=== PATIENT | male | born 1985 | race Caucasian/White ===

== ENCOUNTER 2016-04-29 19:19 | Emergency (ER) | payer MEDICAID ==
[~2016-04-29] VITALS: Ht 188 cm; Wt 82.6 kg
[~2016-04-29 19:19] MED LIST: CALC667C PO; FURO80TA77 PO; HYDR-3240 PO; POTA20TA14 PO; TRAM50TA2 PO; TRAZ100T15 PO
[2016-04-29 19:44] VITALS: BP 123/78
== END 2016-04-29 20:17 | disposition home or self-care (01) ==
LOC: ED 20:16
DX: Z76.0 Encounter for issue of repeat prescription (principal); S39.012A Strain of muscle, fascia and tendon of lower back, initial encounter; S29.012A Strain of muscle and tendon of back wall of thorax, initial encounter; F41.1 Generalized anxiety disorder; F32.9 Major depressive disorder, single episode, unspecified; F10.20 Alcohol dependence, uncomplicated; X58.XXXA Exposure to other specified factors, initial encounter; Y93.89 Activity, other specified; Y92.89 Other specified places as the place of occurrence of the external cause; Y99.8 Other external cause status
CPT/HCPCS: 99283

== ENCOUNTER 2016-07-28 05:45 | Emergency (ER) | payer MEDICAID ==
[~2016-07-28] VITALS: Ht 188 cm; Wt 83.1 kg
[2016-07-28] MEDS ORDERED: TRAZ100T15 PO (05:54)
[2016-07-28] MEDS ORDERED: BUPR200T2 PO (05:54)
[2016-07-28] MEDS ORDERED: KETOROLAC 30 MG/1 ML ONE (06:10)
[2016-07-28] MEDS ORDERED: SODIUM CHLORIDE 0.9% 1,000ML IVBOLUS ONE (06:30)
[2016-07-28] MEDS ORDERED: SODIUM CHLORIDE FLUSH 10ML SYR IVF ONE (06:30)
[2016-07-28] MEDS ORDERED: KETOROLAC 30 MG/1 ML IVPush ONE (06:30)
[2016-07-28 06:56] LABS: BLOOD UREA NITROGEN 15 mg/dL (7-18)
[2016-07-28 07:34] VITALS: BP 120/71
== END 2016-07-28 07:36 | disposition home or self-care (01) ==
LOC: ED 06:07
DX: L03.115 Cellulitis of right lower limb (principal); M79.671 Pain in right foot; M25.571 Pain in right ankle and joints of right foot
CPT/HCPCS: 36415; 80048; 82040; 84550; 85025; 93971; 96361; 96374; 99285; J1885; J7030

== ENCOUNTER 2017-01-22 20:19 | Emergency (ER) | payer MEDICAID ==
[~2017-01-22] VITALS: Ht 185.4 cm; Wt 84.0 kg
[~2017-01-22 20:19] MED LIST changes: +BUPR200T2 PO
[2017-01-22 20:23] VITALS: BP 168/104
[2017-01-22 22:40] LABS: HEMATOCRIT 44.9 % (39.2-51.8); HEMOGLOBIN 15.6 g/dL (13.7-18.0); WHITE BLOOD COUNT 18.6 x10^3/uL (3.4-10)
[2017-01-22 22:52] LABS: ASPARTATE AMINO TRANSFERASE 30 U/L (15-37); BLOOD UREA NITROGEN 10 mg/dL (7-18)
[2017-01-22 23:03] LABS: ACETAMINOPHEN < 2 mcg/mL (10-30)
[2017-01-22] MEDS ORDERED: LORazepam 1MG TABLET PO ONE (23:30)
[2017-01-22 23:39] LABS: DAU SCREEN DISCLAIMER
== END 2017-01-23 02:35 | disposition home or self-care (01) ==
LOC: ED 23:10
DX: F15.151 Other stimulant abuse with stimulant-induced psychotic disorder with hallucinations (principal); R45.851 Suicidal ideations; F15.10 Other stimulant abuse, uncomplicated; Z99.2 Dependence on renal dialysis
CPT/HCPCS: 36415; 80053; 80307; 80329; 85025; 99284; G0479; G0480

== ENCOUNTER 2017-04-25 23:04 | Emergency (ER) | payer MEDICAID ==
[~2017-04-25] VITALS: Ht 188 cm; Wt 87.0 kg
[~2017-04-25 23:04] MED LIST changes: +CLON1TAB PO; +VENL150C PO
[2017-04-25 23:10] VITALS: BP 123/82
== END 2017-04-26 00:32 | disposition home or self-care (01) ==
LOC: ED 23:59
DX: S51.812A Laceration without foreign body of left forearm, initial encounter (principal); F32.9 Major depressive disorder, single episode, unspecified; F43.10 Post-traumatic stress disorder, unspecified; Y04.0XXA Assault by unarmed brawl or fight, initial encounter; Y93.89 Activity, other specified; Y99.8 Other external cause status; Y92.89 Other specified places as the place of occurrence of the external cause
CPT/HCPCS: 12001; 99284

== ENCOUNTER 2019-04-11 00:20 | Emergency (ER) | payer MEDICAID ==
[~2019-04-11] VITALS: Ht 188 cm; Wt 91.0 kg
[~2019-04-11 00:20] MED LIST changes: +TRAZ-175 PO; -TRAZ100T15 PO
[2019-04-11] MEDS ORDERED: LORazepam 2 MG/ML, 1ML IM STA (00:29)
[2019-04-11 01:03] LABS: BASOPHILS # (AUTO) 0.06 x10^3/uL (0-0.1); BASOPHILS % (AUTO) 1 % (0-1); EOSINOPHILS # (AUTO) 0.12 x10^3/uL (0-0.4); EOSINOPHILS % (AUTO) 1 % (1-7); LYMPHOCYTES # (AUTO) 2.17 x10^3/uL (1-3.4); LYMPHOCYTES % (AUTO) 25 % (22-44); MD NO; MEAN CORPUSCULAR HEMOGLOBIN 29.9 pg (27.5-34.5); MEAN CORPUSCULAR HGB CONC 33.7 g/dL (33.2-36.2); MEAN CORPUSCULAR VOLUME 88.9 fL (81-97); MONOCYTES # (AUTO) 0.88 x10^3/uL (0.2-0.8); MONOCYTES % (AUTO) 10 % (2-9); NEUTROPHILS # (AUTO) 5.61 x10^3/uL (1.8-6.8); NEUTROPHILS % (AUTO) 63 % (42-75); PLATELET COUNT 303 x10^3/uL (130-400); RED BLOOD COUNT 4.97 x10^6/uL (4.38-5.82); RED CELL DISTRIBUTION WIDTH 13.7 % (9.4-14.8)
[2019-04-11 01:15] LABS: ALANINE AMINOTRANSFERASE 59 U/L (12-78); ALBUMIN 4.3 g/dL (3.4-5.0); ANION GAP 8 mmol/L (5-15); CALCIUM 8.7 mg/dL (8.5-10.1); CHLORIDE 110 mmol/L (98-107); CREATININE 1.25 mg/dL (0.7-1.3)
[2019-04-11 01:17] LABS: ALKALINE PHOSPHATASE 89 U/L (45-117); BILIRUBIN,TOTAL 0.5 mg/dL (0.2-1.0); TOTAL PROTEIN 7.8 g/dL (6.4-8.2)
--- NOTE | 2019-04-11 03:26 | NUR ---
PT AMBULATE WITH STEADY GAIT TO ROOM
[2019-04-11] MEDS ORDERED: LORazepam 2 MG/ML, 1ML ONE (03:35)
--- NOTE | 2019-04-11 03:43 | NUR ---
PT MEDICATED PER APR. MONITORS APPLIED, URINE CUP PROVIDED, CALL LIGHT WITHIN REACH
--- NOTE | 2019-04-11 04:02 | NUR ---
DISCUSSED NEED FOR URINE SAMPLE, PT ATTEMPTED TO URINATED, STATED HE IS UNABLE TO PRIVE SAMPLE AT THIS TIME
--- NOTE | 2019-04-11 05:04 | NUR ---
PT RESTING WITH EYES CLOSED, NAD, EQUAL CHEST RISE/FALL OBSERVED, CALL LIGHT WITHI REACH. WILL CONTINUE TO MONITOR
[2019-04-11] MEDS ORDERED: NALOXONE 1 MG/ML, 2ML ONE (05:38)
--- NOTE | 2019-04-11 05:44 | NUR ---
PT RESTING WITH EYES CLOSED NOTED PIN POINT PUPILS AND RR-[id number], NARCAN ADMINISTERED PER ERP ORDER, SEE MAR
[2019-04-11] MEDS ORDERED: NALOXONE 1 MG/ML, 2ML IM ONE (06:00)
--- NOTE | 2019-04-11 06:12 | NUR ---
PT RESTING ON GURNEY, DENIES PAIN, VSS, A&OX3, REORIENTED PT TO PLACE. CALL LIGHT WITHIN REACH, WILL CONTINUE TO MONITOR
--- NOTE | 2019-04-11 06:46 | NUR ---
REPORT GIVEN TO SHEILA LOU
--- NOTE | 2019-04-11 07:08 | NUR ---
RECEIVED BEDSIDE REPORT FROM KAREEN PLAN OF CARE DISCUSSED. PT A&OX4. CARD SERVICES SPECIALIST ON, CONTINOUS SP02 AND CYCLE VS. PT COOPERATIVE AND RESTING WELL, PT VERBALIZED NO NEEDS AT THIS TIME
--- NOTE | 2019-04-11 08:06 | NUR ---
RECEIVED REPORT FROM SHEILA LOU. PT RESTING IN [facility]. VSS. Addendum: 04/11/19 at 0808 by SERAFIN PT'S 2L O2 VIA NASAL CANNULA REMOVED. WILL MONITOR VS TO ASSESS FOR READINESS FOR DC.
[2019-04-11 08:08] VITALS: BP 119/42
--- NOTE | 2019-04-11 08:27 | NUR ---
PT AMBULATED C [facility] [place]. PT STEADY ON HIS FEET. AMBULATORY TO RESTROOM INDEPENDENTLY AT THIS TIME.
== END 2019-04-11 08:54 | disposition home or self-care (01) ==
LOC: ED 08:44
DX: T40.1X1A Poisoning by heroin, accidental (unintentional), initial encounter (principal); F15.129 Other stimulant abuse with intoxication, unspecified; F17.200 Nicotine dependence, unspecified, uncomplicated; Z72.9 Problem related to lifestyle, unspecified; Y92.9 Unspecified place or not applicable
CPT/HCPCS: 36415; 80053; 80307; 85025; 96372; 99285; J2060; J2310